=== PATIENT | female | born 1970 | race Caucasian/White ===

== ENCOUNTER → 2017-09-26 | Outpatient (CLI) | payer OTHER ==
[~2017-09-26] MED LIST: DIAVAN PO; METF500 PO; METO50ER PO; OXYACE5T PO; PENVK500 PO; SPIR25 PO; TYLENOL AND ADVIL; [UNRECOGNIZED DRUG - OTHER] PO
== END ==
LOC: LAB SHORT 08:10 → LAB EV 08:10
DX: L02.416 Cutaneous abscess of left lower limb (principal)
CPT/HCPCS: 87070; 87075; 87147; 87205

== ENCOUNTER → 2018-07-10 | Outpatient (CLI) | payer OTHER | END | disposition home or self-care (01) | LOC: LAB 19:50 → LAB SHORT 19:50 | PROVIDERS: Nurse Practitioner | DX: Z01.419 Encounter for gynecological examination (general) (routine) without abnormal findings (principal) | CPT/HCPCS: G0145 ==

== ENCOUNTER → 2019-09-22 | Outpatient (CLI) | payer OTHER | END | disposition home or self-care (01) | LOC: LAB SHORT 07:46 → LAB EV 07:46 | DX: R35.0 Frequency of micturition (principal) | CPT/HCPCS: 87077; 87086; 87186 ==

== ENCOUNTER 2021-11-09 07:40 | Day surgery (SDC) | payer OTHER ==
[~2021-11-09] VITALS: Ht 167.6 cm; Wt 98.1 kg
[~2021-11-09 07:40] MED LIST changes: +GLUCOPHAGE1000 M1 PO; +NEOPOLHCSU BOTHEARS; +VALSARTAN-HCTZ1 EAC7 PO
--- NOTE | 2021-11-09 11:16 | NUR ---
11/09/21 1116 Molly Aguilar PT. MOVING OFF & ON DURING PROCEDURE, MULTIPLE BOLUSES GIVEN PER PROTOCOL. 0934 ZOFRAN 4MG IV WAS GIVEN PER DRAnoop ORDER, PT. VOMITED SMALL AMT. CLEAR TO YELLOW SECRETIONS. PT. WAS SUCTIONED ORALLY NEEDED. PT. WOKE UP TEARFUL. PT. C.O. ABD. CRAMPING RATING "5", DR. AWARE, NO ORDERS WERE GIVEN. PT.WAS INSTRUCTED TO PASS OUT AIR IF FELT THE NEED.
== END 2021-11-09 10:49 | disposition home or self-care (01) ==
LOC: ORSCSDS 07:40
PROVIDERS: Student in an Organized Health Care Education/Training Program
PROC: 0DBM8ZX Excision of Descending Colon, Via Natural or Artificial Opening Endoscopic, Diagnostic (ICD-10-PCS; principal; 2021-11-09 09:00)
PROC: 0DBL8ZX Excision of Transverse Colon, Via Natural or Artificial Opening Endoscopic, Diagnostic (ICD-10-PCS; principal; 2021-11-09 09:00)
PROC: 0DBN8ZX Excision of Sigmoid Colon, Via Natural or Artificial Opening Endoscopic, Diagnostic (ICD-10-PCS; principal; 2021-11-09 09:00)
DX: R19.5 Other fecal abnormalities (principal); D12.3 Benign neoplasm of transverse colon; D12.4 Benign neoplasm of descending colon; K63.5 Polyp of colon; K64.4 Residual hemorrhoidal skin tags; I10 Essential (primary) hypertension; E78.5 Hyperlipidemia, unspecified; E66.9 Obesity, unspecified; Z68.34 Body mass index [BMI] 34.0-34.9, adult; E11.9 Type 2 diabetes mellitus without complications; Z87.891 Personal history of nicotine dependence; Z79.84 Long term (current) use of oral hypoglycemic drugs; Z79.899 Other long term (current) drug therapy
CPT/HCPCS: 82947; 88305; J2405; J2704; J7120

== ENCOUNTER 2021-12-16 17:23 | Emergency (ER) | payer OTHER ==
[~2021-12-16] VITALS: Ht 165.1 cm; Wt 87.5 kg
== END 2021-12-16 19:23 | disposition home or self-care (01) ==
LOC: ER 17:23
DX: S93.402A Sprain of unspecified ligament of left ankle, initial encounter (principal); I10 Essential (primary) hypertension; E11.9 Type 2 diabetes mellitus without complications; W10.9XXA Fall (on) (from) unspecified stairs and steps, initial encounter; Z79.84 Long term (current) use of oral hypoglycemic drugs
CPT/HCPCS: 73610

== ENCOUNTER 2025-06-01 08:46 | Day surgery (SDC) | payer OTHER ==
[~2025-06-01] VITALS: Ht 167.6 cm; Wt 90.8 kg
[2025-06-01] MEDS ORDERED: ALORA1 EA11 (09:44)
[2025-06-01] MEDS ORDERED: PROMETRIUM200 M1 (09:45)
[2025-06-01] MEDS ORDERED: TRULICITY0.75 MG/01 (09:45)
[2025-06-01] MEDS ORDERED: Midazolam HCL 1 MG/ML 5MLVIAL ONE (10:49)
[2025-06-01 11:41] VITALS: BP 128/74
== END 2025-06-01 11:45 | disposition home or self-care (01) ==
LOC: ORSCSDS 08:46
PROVIDERS: Internal Medicine Gastroenterology
PROC: 0DBL8ZX Excision of Transverse Colon, Via Natural or Artificial Opening Endoscopic, Diagnostic (ICD-10-PCS; principal; 2025-06-01 10:30)
PROC: 0DBK8ZX Excision of Ascending Colon, Via Natural or Artificial Opening Endoscopic, Diagnostic (ICD-10-PCS; principal; 2025-06-01 10:30)
DX: Z12.11 Encounter for screening for malignant neoplasm of colon (principal); D12.2 Benign neoplasm of ascending colon; D12.3 Benign neoplasm of transverse colon; R19.5 Other fecal abnormalities; Z86.0101 Personal history of adenomatous and serrated colon polyps; Z83.719 Family history of colon polyps, unspecified; I10 Essential (primary) hypertension; E78.5 Hyperlipidemia, unspecified; E11.9 Type 2 diabetes mellitus without complications; Z79.84 Long term (current) use of oral hypoglycemic drugs; Z79.85 Long-term (current) use of injectable non-insulin antidiabetic drugs; Z79.899 Other long term (current) drug therapy; K64.4 Residual hemorrhoidal skin tags
CPT/HCPCS: 82947; 88305; J2250; J2704; J7120